=== PATIENT | female | born 1960 | race Caucasian/White ===

== ENCOUNTER 2017-04-03 20:18 | Emergency (ER) | payer BC ==
[~2017-04-03] VITALS: Ht 165.1 cm; Wt 98.1 kg
[~2017-04-03 20:18] MED LIST: IBUP600T; PAXI10TA; THYR; VICO5TAB; ZANT150T
[2017-04-03] MEDS ORDERED: PARO25TA PO (20:36)
[2017-04-03] MEDS ORDERED: ATOR1TAB19 PO (20:36)
[2017-04-03] MEDS ORDERED: RANI150T PO (20:36)
[2017-04-03] MEDS ORDERED: LISI10TA4 PO (20:36)
[2017-04-03 20:54] LABS: BASO # 0.1 10^3/uL (0.0-0.2); BASO % 0.6 % (0.0-1.0); EOS # 0.1 10^3/uL (0.0-0.50); EOS % 1.1 % (0.0-3.0); IMMATURE GRANULOCYTE % 0.2 % (0-0); LYMPH # 2.8 10^3/uL (1.5-4.5); LYMPH % 34.5 % (24.0-44.0); MEAN CORPUSCULAR HEMOGLOBIN 28.2 pg (27.0-33.0); MEAN CORPUSCULAR VOLUME 82.9 fl (80.0-96.0); MONO # 0.6 10^3/uL (0.0-0.8); MONO % 7.6 % (0.0-5.0); NEUTROPHILS # 4.6 10^3/uL (1.8-7.7); PLATELET COUNT, AUTOMATED 336 10^3/uL (150-450); RED CELL DISTRIBUTION WIDTH 12.6 % (11.5-14.5); WHITE BLOOD COUNT 8.2 10^3/uL (4.0-10.0)
[2017-04-03 21:28] LABS: INR 0.92
[2017-04-03 21:29] LABS: ANION GAP 7 MEQ/L (8-16); BLOOD UREA NITROGEN 14 MG/DL (7-18); CALCIUM LEVEL 9.2 MG/DL (8.5-10.1); CARBON DIOXIDE LEVEL 26 MEQ/L (21-32); CHLORIDE LEVEL 108 MEQ/L (98-107); CREATININE FOR GFR 0.72 MG/DL (0.55-1.02); GLOMERULAR FILTRATION RATE > 60.0 (>51); GLUCOSE, FASTING 108 MG/DL (70-105); POTASSIUM SERUM 4.2 MEQ/L (3.5-5.1); SODIUM LEVEL 141 MEQ/L (136-145)
[2017-04-03 21:38] LABS: ERYTHROCYTE SEDIMENTATION RATE 4 mm/hr (0-30)
--- NOTE | 2017-04-03 22:40 | REPUSA ---
CT of the head Clinical history: memory loss. Technique: Multiple axial CT images were obtained through the head without administration of contrast . Findings: The ventricles and sulci are symmetric bilaterally. There is no evidence of acute hemorrhag e or infarct. There is no midline shift, mass effect, or extra-axial fluid collection. The osseous st ructures are unremarkable. The visualized paranasal sinuses and mastoid air cells are clear. Impression: Negative study.
[2017-04-03] MEDS ORDERED: KETOROLAC 30 MG/ML VIAL (J1885) IV ONE (22:45)
[2017-04-03 23:23] VITALS: BP 142/84
--- NOTE | 2017-04-06 08:05 | ECGEPIP ---
Stationary ECG Study [facility] - ED Test Date: 2017-04-03 Pat Name: JOSE F KIRK Department: Room: - Gender: F Director Of Exhibit Development: MijaresB: 1960 Requested By: ALEJANDRA LECHUGA Order Number: [id number] Reading MD: Ab Mccurdy Measurements Intervals [place] Rate: 70 P: 55 AK: 154 QRS: 15 QRSD: 96 T: 1 QT: 389 QTc: 420 Interpretive Statements SINUS RHYTHM NSTTW ABNORMALITIES NO PRIORS FOR COMPARISON Electronically Signed On 04-06-2017 8:05:13 EST by Ab Mccurdy
== END 2017-04-03 23:28 | disposition home or self-care (01) ==
LOC: M ED 20:18
DX: R41.1 Anterograde amnesia (principal); F43.9 Reaction to severe stress, unspecified; I10 Essential (primary) hypertension; E78.5 Hyperlipidemia, unspecified; F32.9 Major depressive disorder, single episode, unspecified; F41.9 Anxiety disorder, unspecified; K21.9 Gastro-esophageal reflux disease without esophagitis; Z88.5 Allergy status to narcotic agent; Z88.0 Allergy status to penicillin; Z79.899 Other long term (current) drug therapy
CPT/HCPCS: 70450; 80048; 85025; 85610; 85652; 85730; 93005; 96374; 99284; G0480; J1885